=== PATIENT | female | born 1950 | race Caucasian/White ===

== ENCOUNTER 2017-03-07 10:36 | Day surgery (SDC) | payer MEDICARE, BC ==
--- NOTE | 2017-02-21 06:59 | HP ---
PREOPERATIVE HISTORY AND PHYSICAL: DATE OF SURGERY/ADMISSION: 03/07/17 - OR [facility]AT DATE OF OFFICE VISIT/ENCOUNTER: 02/16/17 ATTENDING SURGEON: Chayo Agrawal MD (DICTATED BY EDA PARKS) PROCEDURE: Left index finger excision mass. CHIEF COMPLAINT: Mass left index finger. HISTORY OF PRESENT ILLNESS: This is a 67-year-old female who complains of a lump on her left index finger that has been present for approximately 7 months. She did not recall any injury. It has become progressively bothersome. It hurts when she bends her finger to quickly or too far or when she hits it on something. She denies any associated numbness or tingling. She is interested in pursuing surgical intervention at this time in the form of excision of a mass from her left index finger. PAST MEDICAL HISTORY: 1. Hypertension. 2. History of anemia. 3. Hypothyroidism secondary to Graves disease. 4. Restless leg syndrome. 5. Arthritis. 6. GERD. PAST SURGICAL HISTORY: 1. Ruptured ectopic . 2. Cholecystectomy. 3. Left shoulder decompression. 4. Left thumb [facility] arthroplasty. CURRENT MEDICATIONS: 1. Biotin. 2. Clonazepam 0.5 mg q.h.s. 3. Hydrochlorothiazide 25 mg daily. 4. Klonopin 0.5 mg daily. 5. Levothyroxine sodium 125 mcg 1 tab daily. 6. Multivitamin with iron. 7. Neurontin 300 mg 5 to 6 q.h.s. 8. [place] 10/325 one tab q.i.d. p.r.n. pain. 9. Potassium chloride 15 mEq 1 tab daily. 10. Prilosec 20 mg daily. 11. Propranolol HCl 10 mg twice a day. 12. Slow Fe daily. 13. Soma 350 mg q.i.d. p.r.n. 14. Ultram 50 mg 1 tab q.i.d. p.r.n. ALLERGIES: MECLIZINE and BENADRYL caused heart pounding and itching. Other allergies include DOXYCYCLINE, MELATONIN and STATINS, reaction unknown. Also allergic to ADHESIVE TAPE and BAND-AIDS. FAMILY MEDICAL HISTORY: Congestive heart failure, diabetes, pancreatic cancer and rheumatoid arthritis. SOCIAL HISTORY: The patient is retired. She is a former smoker, she quit at age 36, she has 15-pack years. Denies recreational drug use. Admits to alcohol use on very rare occasions. REVIEW OF SYSTEMS: General: Negative for fevers, chills or night sweats. No known anesthesia problems. HEENT: Negative for headache, lightheadedness or syncopal episodes. Integumentary: Negative for abrasions, lesions or open wounds. Cardiothoracic: Positive for hypertension. Negative for chest pain, palpitations or edema. Pulmonary: Negative for shortness of breath with exertion, chronic cough, COPD. GI: Negative for nausea, vomiting, diarrhea or constipation. Positive for GERD. : Negative for nocturia, urinary frequency , urgency, history of UTIs or kidney problems. Musculoskeletal: Positive for current complaint. Negative for chronic or intermittent back pain or history of fractures. Endocrine: Negative for diabetes. Positive for hypothyroidism. Hematologic: Positive for history of anemia. Negative for bleeding disorders or history of DVT. Infectious Disease: Negative for history of MRSA, hepatitis C or HIV. PHYSICAL EXAMINATION GENERAL: A well-developed, well-nourished 67-year-old female in no acute distress. VITAL SIGNS: Height 5 feet 3-1/2 inches, weight 193 pounds, pulse rate 60, blood pressure 124/90. HEENT: Normocephalic, atraumatic. Pupils are equal, round and reactive to light and accommodation. Extraocular movements are intact. Throat is clear. NECK: Supple. No palpable lymph nodes. PULMONARY: Lungs are clear to auscultation bilaterally. No wheezes, rales or rhonchi. CARDIOVASCULAR: Regular rate and rhythm. S1, S2. No murmurs, rubs or gallops. No edema. ABDOMEN: Positive bowel sounds, soft, nontender. NEUROLOGIC: Alert and oriented x3. Cranial nerves II through XII are intact. Sensation is intact to light touch. MUSCULOSKELETAL: On exam of the left index finger, there is a cystic mass just distal to the DIP extension crease proximal to the fingernail. It is causing a little bit of deformity of the nail. She has full flexion and extension of the finger. There is mild tenderness at the cyst and in her joint. Skin is intact. Neurovascular function is intact. IMAGING STUDIES: X-rays AP, lateral and oblique of the left index finger showed degenerative arthritis of the left index finger DIP joint without an osteophyte. IMPRESSION: Mucous cyst of left index finger with arthritis. PLAN: The patient is scheduled to undergo a left index finger excision mass with Dr. Agrawal on 03/07/17. She will return to office 10 to 14 days postop for followup and suture removal. The patient has pain medications for arthritis pain at home and will plan on using these or [id number] medications for postoperative pain. EDA PARKS [id number]/[facility] #: [id number] SHORTY
[~2017-03-07 10:36] MED LIST: Buffered Lidocaine 0.9% SYRIN* 5 ML/SYR SYRINGE INTRADERM ONE
[2017-03-07] MEDS ORDERED: Acetaminophen TAB* 325 MG PO PRN (10:41)
[2017-03-07] MEDS ORDERED: Ondansetron INJ* 2 MG/ML VIAL IV PRN (10:41)
[2017-03-07] MEDS ORDERED: Midazolam* 1 MG/ML 2 ML VIAL (2 MG) ONE (11:43)
[2017-03-07] MEDS ORDERED: fentaNYL* 50 MCG/ML 2 ML VIAL (100 MCG VIAL) ONE (11:43)
[2017-03-07] MEDS ORDERED: Famotidine IV* 10 MG/ML 2 ML (20 mg) ONE (12:10)
[2017-03-07] MEDS ORDERED: Lidocaine 1% INJ* 10 MG/ML 30 ML SDV ONE (12:17)
[2017-03-07] MEDS ORDERED: KETAMINE HCL* 50 MG/ML 10 ML VIAL ONE (12:24)
[2017-03-07] MEDS ORDERED: Propofol* 10 MG/ML 20 ML BTL IV PUSH ONE (12:38)
[2017-03-07] MEDS ORDERED: Lidocaine 2% PF * 5 ML VIAL ONE (12:38)
[2017-03-07] MEDS ORDERED: Ketorolac INJ* 30 MG/ML 1 ML VIAL ONE (12:38)
[2017-03-07 13:34] VITALS: BP 165/85
--- NOTE | 2017-03-08 03:28 | OP ---
DATE OF OPERATION: 03/07/17 [facility] DATE OF : 50 SURGEON: Dr. Agrawal. SSN/SSBN ASSISTANT NAVIGATOR: EDA Hanna ANESTHESIOLOGIST: Dr. Bustamante ANESTHESIA: Local MAC. PRE-OP DIAGNOSIS: Left index finger mass. POST-OP DIAGNOSIS: Left index finger mass. OPERATIVE PROCEDURE: Left index finger mass removal. ESTIMATED BLOOD LOSS: Zero. TOURNIQUET TIME: About 15 minutes. INDICATIONS FOR PROCEDURE: Cuca is a 67-year-old female who has a painful mass on the dorsal aspect of her left index finger DIP joint that is causing a significant nail deformity. She presents for removal of the mass. Clinically, it is a mucous cyst. DESCRIPTION OF PROCEDURE: The patient was brought to the operating room, was given a sedation anesthetic and a digital block with 10 cc of 1% plain lidocaine. Skin of her left hand and forearm was prepped and draped in the usual sterile fashion. Hand and forearm were exsanguinated and was removed in its entirety and sent for pathology. The edges of the extensor tendon were incised and the rongeur used to remove the tiny osteophytes present. The wound was irrigated and skin edges reapproximated with 4-0 nylon suture. The wound was dressed with Xeroform, 4x4, Webril, and an Rasta wrap. The patient tolerated the procedure well and was brought to the recovery room in good condition. [id number]/[facility] #: [id number] MTDD
== END 2017-03-07 13:40 | disposition home or self-care (01) ==
LOC: OREAST 10:36
PROVIDERS: ATTEND Orthopaedic Surgery
DX: L72.0 Epidermal cyst (principal); I10 Essential (primary) hypertension; E03.9 Hypothyroidism, unspecified; M19.90 Unspecified osteoarthritis, unspecified site; K21.9 Gastro-esophageal reflux disease without esophagitis
CPT/HCPCS: 88304; J1885; J2001; J2250; J2704; J3010

== ENCOUNTER 2021-06-01 16:44 | Inpatient (IN) ==
[2021-06-01] MEDS ORDERED: Magnesium Sulfate IV 1GM/100ML 1 GM/100 ML BAG IV ONE (17:10)
[2021-06-01] MEDS ORDERED: Metoprolol Tartrate 5 mg VIAL 5 ml VIAL (1 mg/ml) IV ONE ×3 (17:12→19:39)
[2021-06-01 17:25] LABS: ABS Basophils 0.1 10^3/ul (0-0.2); ABS Eosinophils 0.2 10^3/ul (0-0.6); ABS Lymphocytes 2.8 10^3/ul (1.0-4.8); ABS Monocytes 0.8 10^3/ul (0-0.8); ABS Neutrophils 6.9 10^3/ul (1.5-7.7); Eosinophil % 1.6 %; Hematocrit 45 % (35-47); Hemoglobin 15.1 g/dL (12.0-16.0); Mean Corpuscular HGB Conc 34 g/dL (31-36); Mean Corpuscular Hemoglobin 30 pg (27-31); Mean Corpuscular Volume 90 fL (80-97); Mean Platelet Volume 7.4 fL (7.4-10.4); Platelet Count 322 10^3/uL (150-450); Red Cell Distribution Width 13 % (10-15); White Blood Count 10.7 10^3/uL (3.5-10.8)
[2021-06-01 18:28] LABS: TSH Ultra Thyroid Stim Horm 1.24 mcIU/mL (0.34-5.60)
[2021-06-01 19:23] LABS: Rapid COVID-19 Molecular Undetected (Undetected)
[2021-06-01] MEDS ORDERED: Senna TAB 8.6 mg TAB PO PRN (19:39)
[2021-06-01 19:55] LABS: Anion Gap 11 mmol/L (2-11); CO2 Carbon Dioxide 18 mmol/L (22-32); Chloride 99 mmol/L (101-111); Sodium 128 mmol/L (135-145)
[2021-06-01 19:57] LABS: ALT 7 U/L (7-52); Albumin 4.2 g/dL (3.2-5.2); Albumin/Globulin Ratio 1.1 (1-3); Alkaline Phosphatase 76 U/L (35-149); Blood Urea Nitrogen 11 mg/dL (6-24); Calcium 8.6 mg/dL (8.6-10.3); Globulin 3.7 g/dL (2-4); Glucose 109 mg/dL (70-100); Total Protein 7.9 g/dL (6.4-8.9)
[2021-06-01] MEDS ORDERED: Lactated Ringers 1000 ml BAG 1,000 ML IV ONE (20:13)
[2021-06-01] MEDS ORDERED: Enoxaparin 40 MG/0.4 ML SYR SUBCUT SCH (21:00)
[2021-06-01 22:14] LABS: Magnesium 2.4 mg/dL (1.9-2.7); Potassium Redraw 3.8 mmol/L (3.5-5.0)
[2021-06-01] MEDS: HYDROcodone/ACETAMIN 5/325 mg TAB PO PRN (22:39)
[2021-06-01 22:46] LABS: Urine Appearance Clear; Urine Bilirubin Negative (Negative); Urine Blood 1+ (Negative); Urine Color Colorless; Urine Glucose Negative (Negative); Urine Ketones Trace (Negative); Urine Nitrite Negative (Negative); Urine Protein Negative (Negative); Urine Specific Gravity 1.006 (1.002-1.030); Urine Urobilinogen Negative (Negative)
[2021-06-01 23:00] LABS: Urine Bacteria 1+ (Absent); Urine Red Blood Cell Absent (Absent); Urine Squamous Epithelial Cell Present (Absent); Urine White Blood Cell Trace(0-5/hpf) (Absent)
[2021-06-01] MEDS: Metoprolol Tartrate 5 mg VIAL 5 ml VIAL (1 mg/ml) IV PRN (23:57)
[2021-06-02 01:46] LABS: Cholesterol 361 mg/dL; HDL Cholesterol 46.7 mg/dL; LDL Cholesterol 255 mg/dL; Triglycerides 296 mg/dL
[2021-06-02 02:05] LABS: Free T4 1.41 ng/dL (0.61-1.12)
[2021-06-02 02:09] LABS: Total T3 92 ng/dL (87-178)
[2021-06-02] MEDS: HYDROcodone/ACETAMIN 5/325 mg TAB PO PRN ×3 (03:35→13:16)
[2021-06-02 06:30] LABS: Calcium 8.9 mg/dL (8.6-10.3); Potassium 4.1 mmol/L (3.5-5.0)
[2021-06-02 09:14] LABS: HDL Cholesterol 44.5 mg/dL
[2021-06-02 09:54] LABS: Free T4 1.44 ng/dL (0.61-1.12)
[2021-06-03 05:55] LABS: Hematocrit 44 % (35-47); Hemoglobin 15.2 g/dL (12.0-16.0); Mean Corpuscular HGB Conc 35 g/dL (31-36); Mean Corpuscular Hemoglobin 31 pg (27-31); Mean Corpuscular Volume 88 fL (80-97); Mean Platelet Volume 7.4 fL (7.4-10.4); Platelet Count 288 10^3/uL (150-450); Red Blood Count 4.98 10^6 /uL (3.70-4.87); Red Cell Distribution Width 13 % (10-15)
[2021-06-03 06:12] LABS: Calcium 8.8 mg/dL (8.6-10.3); Potassium 3.5 mmol/L (3.5-5.0)
[2021-06-03] MEDS ORDERED: Potassium Chloride LIQUID 20 MEQ/15 ML LIQUID PO ONE (10:13)
[2021-06-03 10:43] LABS: Magnesium 2.1 mg/dL (1.9-2.7)
[2021-06-03] MEDS: KCL 20 MEQ/100 ML IVPREMIX 20 MEQ/100 ML BAG IV SCH ×2 (10:52→13:57)
[2021-06-03] MEDS: HYDROcodone/ACETAMIN 5/325 mg TAB PO PRN (22:30)
[2021-06-04] MEDS: HYDROcodone/ACETAMIN 5/325 mg TAB PO PRN ×2 (02:36→06:16)
[2021-06-04] MEDS: Metoprolol Tartrate 5 mg VIAL 5 ml VIAL (1 mg/ml) IV PRN (06:02)
[2021-06-04 06:27] LABS: Calcium 8.8 mg/dL (8.6-10.3); Magnesium 2.2 mg/dL (1.9-2.7); Potassium 4.2 mmol/L (3.5-5.0)
[2021-06-04 13:19] LABS: Renin <0.6 ng/mL/h
[2021-06-05 11:20] VITALS: BP 123/63
[2021-06-09 18:18] LABS: Urine Collection Duration 24 h
== END 2021-06-05 15:16 | disposition home or self-care (01) | DRG 309 ==
LOC: ED 16:44 → MEDTELE 20:48 → SUATTDRO 20:48 → MEDTELE 22:21
PROVIDERS: ADMIT Internal Medicine; ATTEND Internal Medicine